=== PATIENT | male | born 1970 | race Caucasian/White ===

== ENCOUNTER 2016-09-20 10:00 | Emergency (ER) | payer OTHER ==
[~2016-09-20] VITALS: Ht 182.9 cm; Wt 120.2 kg
[2016-09-20 10:05] VITALS: BP 164/110
--- NOTE | 2016-09-20 10:37 | RAD ---
Indication: Right shoulder pain, twisting injury. Technique: 3 views of the right shoulder are submitted for review. No comparison is available. Findings: There is no fracture or dislocation. There is no osseous lesion. Impression: Negative for fracture.
[2016-09-20] MEDS ORDERED: HYDR-971 PO (11:02)
--- NOTE | 2016-09-20 11:02 | PHYS DOC ---
Past History Past Medical History: No Pertinent History Past Surgical History: Tonsillectomy Alcohol Use: Rarely Drug Use: None Adult General Chief Complaint Chief Complaint: SHOULDER INJURY HPI HPI Patient is a 46-year-old male who injured his right shoulder about one hour prior to arrival. The patient was carrying an object down stairs, wearing flip- flops, he was holding onto the handrail with his right hand, he slipped and started to fall down the stairs but jerked his shoulder in the process as he kept holding onto the handrail while his body went forward. He feels a "lump" on the posterior shoulder. He denies other injury. He denies previous injury to the right shoulder. Review of Systems Review of Systems Constitutional: Denies fever or chills [] Musculoskeletal: Denies injury except for right shoulder Physical Exam Physical Exam Constitutional: Well developed, well nourished, no acute distress, non-toxic appearance. [] HENT: Normocephalic, atraumatic, bilateral external ears normal, nose normal. [ ] Eyes: conjunctiva normal, no discharge. [] Neck: Normal range of motion, no stridor. [] Skin: Warm, dry, no erythema, no rash. [] Extremities: Right upper: There is an area of swelling that is tender located posteriorly over the right shoulder, care home between the shoulder joint and the cervical spine. No ecchymosis. It appears to be muscular. No bony tenderness or deformity of the clavicle or before meals. No bony tenderness of the right shoulder joint. The patient is able to fully overhead extend his right arm with some pain in the area of swelling. Remainder of the right arm without swelling, deformity, or tenderness. Patient has full strength for internal and external rotation of both upper extremities. Neurologic: Alert and oriented X 3, normal motor function, normal sensory function, no focal deficits noted. [] Current Patient Data Vital Signs Vital Signs Date Time Temp Pulse Resp B/P (MAP) Pulse Ox O2 Delivery O2 Flow Rate FiO2 09/20/16 10:05 97.9 87 16 100 Room Air EKG EKG [] Radiology/Procedures Radiology/Procedures Three-view x-ray of the right shoulder read by the radiologist, negative for acute findings. [] Course & Med Decision Making Course & Med Decision Making Pertinent Labs and Imaging studies reviewed. (See chart for details) Patient appears to have an isolated muscle strain with swelling of the trapezius over the posterior right shoulder. His injury does not appear to involve the right shoulder joint but appears to be muscular. [] Dragon Disclaimer Dragon Disclaimer This chart was dictated in whole or in part using Voice Recognition software in a busy, high-work load, and often noisy Emergency Department environment. It may contain unintended and wholly unrecognized errors or omissions. Departure Departure: Impression: Primary Impression: Muscle strain of right shoulder region Disposition: HOME, SELF-CARE Condition: STABLE Referrals: NON,STAFF (PCP) Patient Instructions: Muscle Strain, [id number] Additional Instructions: Ice 15-20 minutes out of every 1-2 hours or more. Ibuprofen 800 mg every 6-8 hours regularly for 2-3 days, then as needed. If needed for more severe pain, hydrocodone as prescribed. This may be combined with ibuprofen. Hydrocodone is an opiate, do not take while driving, it will cause constipation and sedation. Scripts Hydrocodone Bit/Acetaminophen (NORCO 5-325 TABLET) 1 Each Tablet 1-2 TAB PO Q4-6HRS for shoulder pain, #10 TAB Prov: MONICA REES MD 09/20/16 MONICA REES MD September 20, 2016 11:02
== END 2016-09-20 11:09 | disposition home or self-care (01) ==
LOC: ER 10:00
DX: S46.811A Strain of other muscles, fascia and tendons at shoulder and upper arm level, right arm, initial encounter (principal); W10.8XXA Fall (on) (from) other stairs and steps, initial encounter; Y93.89 Activity, other specified; Y99.8 Other external cause status; Y92.89 Other specified places as the place of occurrence of the external cause
CPT/HCPCS: 73030; 99284